=== PATIENT | male | born 1955 | race Caucasian/White ===

== ENCOUNTER → 2020-12-05 00:18 | Outpatient (CLI) | payer MEDICARE, SELFPAY ==
[2020-12-05 19:14] LABS: SARS-CoV-2 RNA PCR Negative
== END ==
PROVIDERS: PCP Internal Medicine; Visit Provider Internal Medicine Gastroenterology
DX: Z01.812 Encounter for preprocedural laboratory examination (principal); Z20.822 Contact with and (suspected) exposure to COVID-19
CPT/HCPCS: C9803; U0003; U0005

== ENCOUNTER 2020-12-08 00:07 | Day surgery (SDC) | payer MEDICARE, SELFPAY ==
[2020-11-24 13:42] VITALS: BMI 28.3
[2020-12-08 07:22] VITALS: BP 171/77; PULSE 71; RESP 16; TEMP 36.6; O2SAT 100; BMI 28.6
[2020-12-08] MEDS: LACTATED RINGERS 1,000 ML 150 ML IV CONT (07:29)
--- NOTE | 2020-12-08 07:46 | WPDANESEPPF ---
Anes - Initial Pre Proc Eval Procedure: Operation Date: 12/08/20 08:30 Proposed Procedures p Esophagogastroduodenoscopy & Colonoscopy - Koko Becker MD Date/Time: 12/08/20 07:46 Surgeon: Koko Becker MD Pre Op Diagnosis: Diarrhea, GERD, Dysphagia Patient Data Age: 65 Gender: M Height: 5 ft 9 in Weight: 87.9 kg Last Vital Signs Temp 98 F 12/08/20 07:22 Pulse 71 12/08/20 07:22 Resp 16 12/08/20 07:22 BP 171/77 H 12/08/20 07:22 Pulse Ox 100 12/08/20 07:22 Allergies Allergy/AdvReac Type Severity Reaction Status Date / Time No Known Allergies Allergy Verified 12/08/20 07:19 Home Medications Medication Instructions Recorded Confirmed Type amlodipine 5 mg tablet 5 mg PO DAILY 10/23/20 12/08/20 History diclofenac sodium 75 mg 75 mg PO BID 10/23/20 12/08/20 History tablet,delayed release fenofibrate 160 mg tablet 160 mg PO DAILY 10/23/20 12/08/20 History losartan 100 mg tablet 100 mg PO DAILY 10/23/20 12/08/20 History tamsulosin 0.4 mg capsule 0.4 mg PO DAILY 10/23/20 12/08/20 History trazodone 50 mg PO DAILY 11/24/20 12/08/20 History Patient hx anesthesia problems: none Family hx anesthesia problems: none PMFSH Past Medical History Medical History (Updated 10/26/20 @ 15:39 by Koko Becker MD) Arthritis Benign prostatic hyperplasia Diverticular disease Dysphagia Essential hypertension GERD (gastroesophageal reflux disease) Hernia of abdominal cavity Hyperlipidemia Insomnia Polyp of colon Surgical History Surgical History History of elbow surgery History of knee surgery History of throat surgery History of tonsillectomy Family History Family History Mother Heart disease Unknown Hypertension Malignant (primary) neoplasm, unspecified Family history of stroke Family history of cancer Social History Social History (Updated 10/26/20 @ 15:23 by Kalee Hyatt CMA) Years smoked: 5 Smoking status: Former smoker Tobacco type: cigarettes Alcohol intake: current Drinks per week: 3 Substance use: never Substance use type: does not use Living arrangements: with family Gender identity (if verbalized by the patient): Male Spiritual care concerns: No Anes - Eval Final PreProcedure Day of Procedure 12/08/20 07:46 Patient weight: normal Heart: regular rate and rhythm Lungs: clear to auscultation Airway: Mallampati scale class II Neurological: alert and oriented Last oral intake: >/= 8 hours ASA classification: III Emergent: no Anesthetic plan: proceed Anesthesia type and monitoring: general GIVS and standard monitoring Informed Consent: The patient's anesthetic plan and its attendant risks and benefits were discussed with the patient/family/POA. Questions were solicited and answers provided to the satisfaction of the patient/family/POA.
--- NOTE | 2020-12-08 08:34 | PM.HPGS ---
History of Present Illness History of Present Illness Consent: Risks, benefits, and alternatives have been discussed and questions answered. Patient agrees to proceed with procedure. Chief complaint: Diarrhea, GERD, Dysphagia Narrative: Toy Lopez is a 65 year old male with several months of loose stools mostly in the morning, also abdominal discomfort and urgency, GERD (never had EGD), last colonoscopy 2018 and had polyps in the past Review of Systems Constitutional: Constitutional: Denies headache(s) and Denies weakness Eyes: Eyes: Denies blurry vision ENT: Reports Normal hearing present, Denies headache(s) and Denies neck pain Cardiovascular: Cardiovascular: Denies chest pain and Denies dyspnea Respiratory: Respiratory: Denies dyspnea Gastrointestinal: Gastrointestinal: Reports no additional gastrointestinal complaints Genitourinary: Genitourinary: Denies dysuria Musculoskeletal: Musculoskeletal: Denies neck pain Integumentary/Breasts: Skin/Breast: Denies dry skin Neurologic: Reports Normal hearing present, Denies headache(s) and Denies weakness Psychiatric: Psychiatric: Denies anxiety Endocrine: Endocrine: Denies change in body appearance Hematologic/Lymphatic: Hematologic/Lymphatic: Denies easy bleeding Allergic/Immunologic: Allergic/Immunologic: Denies urticaria PMF Past Medical History Medical History (Updated 12/08/20 @ 08:35 by Koko Becker MD) Arthritis Benign prostatic hyperplasia Diarrhea Diverticular disease Dysphagia Essential hypertension GERD (gastroesophageal reflux disease) Hernia of abdominal cavity Hyperlipidemia Insomnia Polyp of colon Surgical History Surgical History History of elbow surgery History of knee surgery History of throat surgery History of tonsillectomy Family History Family History Mother Heart disease Unknown Hypertension Malignant (primary) neoplasm, unspecified Family history of stroke Family history of cancer Social History Social History (Updated 10/26/20 @ 15:23 by Kalee Hyatt CMA) Years smoked: 5 Smoking status: Former smoker Tobacco type: cigarettes Alcohol intake: current Drinks per week: 3 Substance use: never Substance use type: does not use Living arrangements: with family Gender identity (if verbalized by the patient): Male Spiritual care concerns: No Meds Home Medications and Allergies Home Medications Medication Instructions Recorded Confirmed Type amlodipine 5 mg tablet 5 mg PO DAILY 10/23/20 12/08/20 History diclofenac sodium 75 mg 75 mg PO BID 10/23/20 12/08/20 History tablet,delayed release fenofibrate 160 mg tablet 160 mg PO DAILY 10/23/20 12/08/20 History losartan 100 mg tablet 100 mg PO DAILY 10/23/20 12/08/20 History tamsulosin 0.4 mg capsule 0.4 mg PO DAILY 10/23/20 12/08/20 History trazodone 50 mg PO DAILY 11/24/20 12/08/20 History Allergies Allergy/AdvReac Type Severity Reaction Status Date / Time No Known Allergies Allergy Verified 12/08/20 07:19 Vital Signs Vital Signs - 24 hr 12/08/20 07:22 Temperature 98 F Pulse Rate 71 Respiratory Rate 16 Blood Pressure 171/77 H Pulse Oximetry 100 Exam Const: General: comfortable and no acute distress HENMT: General nose exam: Normal nares present Eyes: General: appearance normal, both eyes and all related structures Neck: Neck: no JVD Resp: Auscultation: clear to auscultation bilaterally Cardio: Rate: regular rate Rhythm: regular rhythm GI: Inspection: non-distended GI Palp: Yes Soft to palpation Skin: General skin exam: normal color Neuro: General: gait normal Speech: normal speech Extrem: General: normal to inspection Psych: Mental Status: mental status grossly normal Assessment and Plan Assessment and plan (1) GERD (gastroesophageal reflux
--- NOTE | 2020-12-08 08:50 | SUR.OPER ---
EGD ENDED 845, COLONOSCOPY STARTED 849
[2020-12-08 09:06] VITALS: BP 141/82; PULSE 66; RESP 16; O2SAT 100
[2020-12-08 09:16] VITALS: BP 137/78; PULSE 61; RESP 18; O2SAT 100
[2020-12-08 09:26] VITALS: BP 164/89; PULSE 60; RESP 18; O2SAT 100
== END 2020-12-08 09:55 | disposition home or self-care (01) ==
PROVIDERS: PCP Internal Medicine; Visit Provider Internal Medicine Gastroenterology
PROC: 0DJ08ZZ Inspection of Upper Intestinal Tract, Via Natural or Artificial Opening Endoscopic (ICD-10-PCS; CPT 43235; principal; 2020-12-08 08:30)
DX: R19.7 Diarrhea, unspecified (principal); K57.30 Diverticulosis of large intestine without perforation or abscess without bleeding; K64.8 Other hemorrhoids; K21.00 Gastro-esophageal reflux disease with esophagitis, without bleeding; K29.80 Duodenitis without bleeding; K22.10 Ulcer of esophagus without bleeding; K29.70 Gastritis, unspecified, without bleeding; I10 Essential (primary) hypertension; E78.5 Hyperlipidemia, unspecified; N40.0 Benign prostatic hyperplasia without lower urinary tract symptoms; Z87.891 Personal history of nicotine dependence
CPT/HCPCS: 45380; 43239; 87081; 88305; C9803; J2704; J7120; U0003; U0005

== ENCOUNTER 2021-05-14 02:57 | Day surgery (SDC) | payer MEDICARE, SELFPAY ==
[2021-05-07 09:41] VITALS: BMI 28.7
[2021-05-14 08:22] VITALS: BP 149/68; PULSE 58; RESP 16; TEMP 36.5; O2SAT 99; BMI 28.2
[2021-05-14] MEDS: LACTATED RINGERS 1,000 ML 150 ML IV CONT (08:35)
--- NOTE | 2021-05-14 08:36 | WPDANESEPPF ---
Anes - Initial Pre Proc Eval Procedure: Operation Date: 05/14/21 09:00 Proposed Procedures p Esophagogastroduodenoscopy - Koko Becker MD Date/Time: 05/14/21 08:36 Surgeon: Koko Becker MD Pre Op Diagnosis: esophagitis Patient Data Age: 65 Gender: M Height: 1.75 m Weight: 86.6 kg Last Vital Signs Temp 97.7 F 05/14/21 08:22 Pulse 58 L 05/14/21 08:22 Resp 16 05/14/21 08:22 BP 149/68 H 05/14/21 08:22 Pulse Ox 99 05/14/21 08:22 Allergies Allergy/AdvReac Type Severity Reaction Status Date / Time No Known Allergies Allergy Verified 05/14/21 08:21 Home Medications Medication Instructions Recorded Confirmed Type amlodipine 5 mg tablet 5 mg PO DAILY 10/23/20 05/07/21 History fenofibrate 160 mg tablet 160 mg PO DAILY 10/23/20 05/07/21 History losartan 100 mg tablet 100 mg PO DAILY 10/23/20 05/07/21 History tamsulosin 0.4 mg capsule 0.4 mg PO DAILY 10/23/20 05/07/21 History omeprazole 40 mg capsule,delayed 40 mg PO DAILY #30 cap 12/08/20 05/07/21 Rx release folic acid 1 mg PO DAILY 05/07/21 05/07/21 History hydroxychloroquine 200 mg PO BID 05/07/21 05/07/21 History methotrexate sodium 10 mg PO WEEKLY 05/07/21 05/07/21 History Patient hx anesthesia problems: none Family hx anesthesia problems: none PMFSH Past Medical History Medical History (Updated 04/01/21 @ 10:04 by Koko Becker MD) Arthritis Benign prostatic hyperplasia Diarrhea Diverticular disease Dry mouth Dysphagia Erosive esophagitis Essential hypertension GERD (gastroesophageal reflux disease) Hernia of abdominal cavity Hyperlipidemia Insomnia Irritable bowel syndrome with diarrhea Polyp of colon Rheumatoid arthritis Surgical History Surgical History History of elbow surgery History of knee surgery History of throat surgery History of tonsillectomy Family History Family History Mother Heart disease Unknown Hypertension Malignant (primary) neoplasm, unspecified Family history of stroke Family history of cancer Social History Social History Years smoked: 5 Smoking status: Never smoker Tobacco type: cigarettes Alcohol intake: current Drinks per week: 3 Substance use: never Substance use type: does not use Living arrangements: with family Gender identity (if verbalized by the patient): Male Spiritual care concerns: No Anes - Eval Final PreProcedure Day of Procedure 05/14/21 08:36 Patient weight: obese Heart: regular rate and rhythm Lungs: clear to auscultation Airway: Mallampati scale class II Neurological: alert and oriented Last oral intake: >/= 8 hours ASA classification: III Emergent: no Anesthetic plan: proceed Anesthesia type and monitoring: general GIVS and standard monitoring Informed Consent: The patient's anesthetic plan and its attendant risks and benefits were discussed with the patient/family/POA. Questions were solicited and answers provided to the satisfaction of the patient/family/POA.
--- NOTE | 2021-05-14 09:00 | PM.HPGS ---
History of Present Illness History of Present Illness Consent: Risks, benefits, and alternatives have been discussed and questions answered. Patient agrees to proceed with procedure. Chief complaint: esophagitis Narrative: Toy Lopez is a 65 year old male with erosive esophagitis 11/2020 better with omeprazole and not longer using nsaid's. Still with morning diarrhea on imodium, could not afford xifaxan (colonoscopy with normal bx) Review of Systems Constitutional: Constitutional: Denies headache(s) and Denies weakness Eyes: Eyes: Denies blurry vision ENT: Reports Normal hearing present, Denies headache(s) and Denies neck pain Cardiovascular: Cardiovascular: Denies chest pain and Denies dyspnea Respiratory: Respiratory: Denies dyspnea Gastrointestinal: Gastrointestinal: Reports no additional gastrointestinal complaints Genitourinary: Genitourinary: Denies dysuria Musculoskeletal: Musculoskeletal: Denies neck pain Integumentary/Breasts: Skin/Breast: Denies dry skin Neurologic: Reports Normal hearing present, Denies headache(s) and Denies weakness Psychiatric: Psychiatric: Denies anxiety Endocrine: Endocrine: Denies change in body appearance Hematologic/Lymphatic: Hematologic/Lymphatic: Denies easy bleeding Allergic/Immunologic: Allergic/Immunologic: Denies urticaria PMFSH Past Medical History Medical History (Updated 04/01/21 @ 10:04 by Koko Becker MD) Arthritis Benign prostatic hyperplasia Diarrhea Diverticular disease Dry mouth Dysphagia Erosive esophagitis Essential hypertension GERD (gastroesophageal reflux disease) Hernia of abdominal cavity Hyperlipidemia Insomnia Irritable bowel syndrome with diarrhea Polyp of colon Rheumatoid arthritis Surgical History Surgical History History of elbow surgery History of knee surgery History of throat surgery History of tonsillectomy Family History Family History Mother Heart disease Unknown Hypertension Malignant (primary) neoplasm, unspecified Family history of stroke Family history of cancer Social History Social History Years smoked: 5 Smoking status: Never smoker Tobacco type: cigarettes Alcohol intake: current Drinks per week: 3 Substance use: never Substance use type: does not use Living arrangements: with family Gender identity (if verbalized by the patient): Male Spiritual care concerns: No Meds Home Medications and Allergies Home Medications Medication Instructions Recorded Confirmed Type amlodipine 5 mg tablet 5 mg PO DAILY 10/23/20 05/07/21 History fenofibrate 160 mg tablet 160 mg PO DAILY 10/23/20 05/07/21 History losartan 100 mg tablet 100 mg PO DAILY 10/23/20 05/07/21 History tamsulosin 0.4 mg capsule 0.4 mg PO DAILY 10/23/20 05/07/21 History omeprazole 40 mg capsule,delayed 40 mg PO DAILY #30 cap 12/08/20 05/07/21 Rx release folic acid 1 mg PO DAILY 05/07/21 05/07/21 History hydroxychloroquine 200 mg PO BID 05/07/21 05/07/21 History methotrexate sodium 10 mg PO WEEKLY 05/07/21 05/07/21 History Allergies Allergy/AdvReac Type Severity Reaction Status Date / Time No Known Allergies Allergy Verified 05/14/21 08:21 Vital Signs Vital Signs - 24 hr 05/14/21 08:22 Temperature 97.7 F Pulse Rate 58 L Respiratory Rate 16 Blood Pressure 149/68 H Pulse Oximetry 99 Exam Const: General: comfortable and no acute distress HENMT: General nose exam: Normal nares present Eyes: General: appearance normal, both eyes and all related structures Neck: Neck: no JVD Resp: Auscultation: clear to auscultation bilaterally Cardio: Rate: regular rate Rhythm: regular rhythm GI: Inspection: non-distended GI Palp: Yes Soft to palpation Skin: General skin exam: normal color Neuro: General: gait norm
[2021-05-14 09:16] VITALS: BP 109/54; PULSE 56; RESP 17; O2SAT 100
[2021-05-14 09:26] VITALS: BP 105/53; PULSE 54; RESP 17; O2SAT 100
[2021-05-14 09:36] VITALS: BP 115/64; PULSE 54; RESP 14; O2SAT 100
== END 2021-05-14 09:47 | disposition home or self-care (01) ==
PROVIDERS: PCP Internal Medicine; Visit Provider Internal Medicine Gastroenterology
PROC: 0DJ08ZZ Inspection of Upper Intestinal Tract, Via Natural or Artificial Opening Endoscopic (ICD-10-PCS; CPT 43235; principal; 2021-05-14 09:00)
DX: K22.10 Ulcer of esophagus without bleeding (principal); K21.9 Gastro-esophageal reflux disease without esophagitis; R13.10 Dysphagia, unspecified; K57.30 Diverticulosis of large intestine without perforation or abscess without bleeding; K58.0 Irritable bowel syndrome with diarrhea; I10 Essential (primary) hypertension; E78.5 Hyperlipidemia, unspecified; M19.90 Unspecified osteoarthritis, unspecified site; M06.9 Rheumatoid arthritis, unspecified; N40.0 Benign prostatic hyperplasia without lower urinary tract symptoms; R68.2 Dry mouth, unspecified; G47.00 Insomnia, unspecified
CPT/HCPCS: 43235; J2001; J2704; J7120

== ENCOUNTER 2024-03-27 17:37 | Emergency (ER) | payer MEDICARE, SELFPAY ==
--- NOTE | ~2024-03-27 | CT_ITS ---
EXAMINATION: CT abdomen pelvis w con DATE: 03/27/2024 18:43 INDICATION: Left lower quadrant abdominal pain. TECHNIQUE: Computed tomography (CT) of the abdomen and pelvis was performed with 100 mL Omnipaque 350 intravenous contrast. Automated exposure control and iterative reconstruction technique were employe d. The dose-length product was 1014.53 mGy-cm. COMPARISON: CT abdomen and pelvis 08/29/2012 FINDINGS: The visualized portions of the lung bases demonstrate mild atelectasis. No pleural effusion . There is left atrial enlargement of the heart. No pericardial effusion. The liver and spleen are no rmal. There are changes of cholecystectomy. The pancreas, adrenal glands, are normal. There are cysts in the kidneys measuring up to 2.5 cm on the left. There is mild left hydronephrosis. There is a 4 m m stone in proximal left ureter. There is diverticulosis of the colon without evidence of diverticuli tis. There are no dilated loops of bowel. The appendix is normal. There are no pathologically enlarge d lymph nodes. There is no free intraperitoneal fluid. There is severe lower lumbar spondylosis. IMPRESSION: 1. 4 mm stone in proximal left ureter with mild left hydronephrosis. Reviewed, dictated and finalized at location E.
[2024-03-27 17:46] VITALS: BP 172/88; PULSE 61; RESP 18; TEMP 36.9; O2SAT 100
--- NOTE | 2024-03-27 18:03 | ED.ABDPAIN ---
HPI - Abdominal Pain General Chief Complaint: Abdominal Pain Stated Complaint: abd pain Time Seen by Provider: 03/27/24 17:53 Source: patient Mode of arrival: ambulatory Limitations: no limitations History of Present Illness HPI narrative: this is a 68-year-old male who presents to the ED for chief complaint of left lower quadrant abdominal pain x2 days. reports dealing with chronic abdominal pain throughout the lower abdomen, however it is abnormally localized to the left lower quadrant over the past couple of days. He reports history of hernia with multiple mesh placement and is concerned that this may have to do with this pain. Endorses diarrhea x1 week. Endorses nausea but no vomiting. Denies fevers, chills, chest pain, shortness of breath, cough, flank pain, urinary symptoms. Related Data Home Medications Medication Instructions Recorded Confirmed amlodipine 5 mg tablet 5 mg PO DAILY 10/23/20 10/24/23 fenofibrate 160 mg tablet 160 mg PO DAILY 10/23/20 10/24/23 losartan 100 mg tablet 100 mg PO DAILY 10/23/20 10/24/23 tamsulosin 0.4 mg capsule 0.4 mg PO DAILY 10/23/20 10/24/23 folic acid 1 mg tablet 1 mg PO DAILY 05/07/21 10/24/23 methotrexate sodium 2.5 mg tablet 10 mg PO WEEKLY 05/07/21 10/24/23 Allergies Allergy/AdvReac Type Severity Reaction Status Date / Time No Known Allergies Allergy Verified 10/24/23 09:00 Review of Systems Review of Systems: All systems as dictated in HPI [facility] Past Medical History Medical History Arthritis Benign prostatic hyperplasia Diarrhea Diverticular disease Dry mouth Dysphagia Erosive esophagitis Essential hypertension GERD (gastroesophageal reflux disease) Hernia of abdominal cavity Hyperlipidemia Insomnia Irritable bowel syndrome with diarrhea Polyp of colon Rheumatoid arthritis Surgical History Surgical History History of elbow surgery History of knee surgery History of throat surgery History of tonsillectomy Family History Family History Mother Heart disease Unknown Hypertension Malignant (primary) neoplasm, unspecified Family history of stroke Family history of cancer Social History Social History Years smoked: 5 Smoking status: Never smoker Tobacco type: cigarettes Alcohol intake: current Drinks per week: 3 Substance use: never Substance use type: does not use Living arrangements: with family Occupation/Education: retired Gender identity (if verbalized by the patient): Male Spiritual care concerns: No Exam Narrative: GENERAL: Well-appearing, well-nourished, and in no acute distress. HEAD: Normocephalic, atraumatic. EYES: PERRLA and EOMI. ENT: Nares clear, no rhinorrhea or epistaxis. Mucous membranes moist. Oropharynx without tonsillar hypertrophy exudate or other lesions. NECK: Supple. No adenopathy or masses. CHEST: No respiratory distress. Clear to auscultation. No wheezes rales or rhonchi HEART: Regular rate and rhythm. No murmur heard. Normal peripheral pulses. ABDOMEN: minimal abdominal tenderness. Mild left-sided /left flank tenderness. Soft, otherwise nontender, nondistended, normal active bowel sounds. Negative peritoneal signs MSK: Normal range of motion. No edema. SKIN: Warm, dry, no rash. NEURO: Alert and oriented x4. No focal deficits. PSYCH: Normal mood and affect. Course Vital Signs Vital signs: Vital Signs Temperature 98.5 F 03/27/24 17:46 Pulse Rate 61 03/27/24 17:46 Respiratory Rate 18 03/27/24 17:46 Blood Pressure 172/88 H 03/27/24 17:46 Pulse Oximetry 100 03/27/24 17:46 Oxygen Delivery Room Air 03/27/24 17:46 Temperature 98.5 F 03/27/24 17:46 Pulse Rate 72 03/27/24 20:03 Respiratory Rate 18 03/27/24 20:03 Bloo
[2024-03-27 18:06] LABS: Basophils Percent Auto 0.2 % (0.2-1.2); Eosinophils Absolute Auto 0.1 K/mm3 (0-0.3); Eosinophils Percent Auto 0.5 % (0-4.4); Hematocrit 43.8 % (42.0-52.0); Immature Granulocyte Absolute 0.04 K/mm3 (0.00-0.031); Immature Granulocyte Percent A 0.4 % (0-0.5); Lymphocytes Absolute Auto 0.88 K/mm3 (0.9-3.2); Lymphocytes Percent Auto 8.5 % (18.3-44.2); Mean Corpuscular HGB Conc 34.2 g/dl (32-36); Mean Corpuscular Hemoglobin 31.6 pg (26-34); Mean Corpuscular Volume 92.2 fl (80-100); Mean Platelet Volume 10.5 fl (7.4-10.4); Monocytes Absolute Auto 0.9 K/mm3 (0.1-0.6); Monocytes Percent Auto 8.8 % (2.6-8.5); Neutrophils Absolute Auto 8.5 K/mm3 (1.3-6.7); Neutrophils Percent Auto 81.6 % (45.5-73.1); Platelet Count Result 225 k/mm3 (150-375); Red Blood Count 4.75 M/mm3 (4.6-6.20); Red Cell Distribution Width 14.6 % (11.5-14.5); White Blood Count 10.4 K/mm3 (4.5-10.0)
[2024-03-27 18:17] LABS: Alanine Aminotransferase 27 U/L (6-50); Albumin Level 4.6 g/dL (3.5-5.1); Alkaline Phosphatase 63 U/L (38-126); Anion Gap 11 mmol/L (4-12); Aspartate Amino Transferase 30 U/L (17-59); Bilirubin,Total 0.5 mg/dL (0.2-1.3); Blood Urea Nitrogen 27 mg/dL (9-20); Calcium 9.3 mg/dL (8.4-10.2); Carbon Dioxide 23 mmol/L (22-30); Chloride 106 mmol/L (98-107); Estimated CRCL calculation 42 ml/min; Estimated Glomerular Filt Rate 46; Glucose 104 mg/dL (65-110); Lipase 231 U/L (23-300); Potassium 4.1 mmol/L (3.4-5.0); Sodium 140 mmol/L (137-145)
[2024-03-27] MEDS: SODIUM CHLORIDE 0.9% IV 1,000 ML 999 ML IV CONT (18:47)
[2024-03-27] MEDS: ONDANSETRON INJ 4 MG/2 ML VIAL IV PUSH (18:47)
[2024-03-27] MEDS: HYDROmorphone HCL INJ (*CRX) 1 MG/ML SYR 0.5 MG IV PUSH (18:49)
[2024-03-27 18:54] VITALS: PULSE 71; RESP 18; O2SAT 96
[2024-03-27 19:05] LABS: Appearance Urine Clear (Clear); Bacteria Urine None Seen /hpf; Bilirubin Urine Negative (Negative); Blood Urine 2+ (Negative); Color Urine Yellow (Yellow); Glucose Urine UA Negative (Negative); Ketones Urine Negative (Negative); Leukocyte Esterase Ur Negative LEU/UL (Negative); Nitrate Urine Negative (Negative); Non Pathogenic Casts 0-2; Protein Urine Trace mg/dL (Negative); RBC Urine 51-100 /hpf (0-2); Specific Grav Ur 1.024 (1.001-1.035); Squamous Epithelial Cell Urine None Seen /hpf (Few); Urobilinogen Urine 0.2 mg/dL (<2.0); WBC Urine 0-5 /hpf (0-3); pH Urine 5.5 (5.0-9.0)
[2024-03-27 19:09] LABS: Add Urine Microscopic? YES
[2024-03-27 20:03] VITALS: BP 152/83; PULSE 72; RESP 18; O2SAT 98
== END 2024-03-27 20:04 | disposition home or self-care (01) ==
PROVIDERS: Emergency Medicine; Emergency Provider Physician Assistant; PCP Internal Medicine
DX: N20.1 Calculus of ureter (principal); I10 Essential (primary) hypertension; E78.5 Hyperlipidemia, unspecified; M06.9 Rheumatoid arthritis, unspecified
CPT/HCPCS: 36415; 74177; 80053; 81001; 83690; 85025; 96361; 96374; 96375; 99284; J1170; J2405; J7030; Q9967

== ENCOUNTER 2024-05-07 13:56 | Outpatient (CLI) | payer MEDICARE, SELFPAY ==
--- NOTE | ~2024-05-07 | XR_ITS ---
XR abdomen/kub 1V Ordering provider: Oliver Alfred MD History: . L ureteral stone follow up pain for 1 month . Comparison: None. FINDINGS: BOWEL: Nonobstructive bowel gas pattern. ORGANOMEGALY: None. SIGNIFICANT PATHOLOGIC CALCIFICATIONS: Stone in the left kidney lower pole. OTHER: Degenerative the spine. Osteoarthritic changes of both hips. No free air is seen under the dieter phragm. IMPRESSION: NO ACUTE ABDOMINAL FINDINGS. Left kidney lower pole stone. Reviewed, dictated and finalized at location A.
--- NOTE | ~2024-05-07 | CT_ITS ---
EXAMINATION: CT abdomen pelvis wo con DATE: 05/07/2024 14:14 INDICATION: Left ureteral stone. TECHNIQUE: Computed tomography (CT) of the abdomen and pelvis was performed without intravenous contr ast. Automated exposure control and iterative reconstruction technique were employed. The dose-length product was 879.51 mGy-cm. COMPARISON: CT abdomen and pelvis 03/27/2024 FINDINGS: The visualized portions of the lung bases demonstrate minimal atelectasis. No pleural effus ion. The heart size is normal. No pericardial effusion. The liver and spleen are normal. There are ch anges cholecystectomy. The pancreas and adrenal glands are normal. There are cysts in the kidneys sari suring up to 17 mm on the left. There is a 4 mm stone in left kidney. There is diverticulosis of the colon without evidence of diverticulitis. There are no dilated loops of bowel. The appendix is normal . There is old fat necrosis near the sigmoid colon. There are changes of umbilical hernia repair. The re are no pathologically enlarged lymph nodes. There is no free intraperitoneal fluid. There is sever e lumbar spondylosis. IMPRESSION: 1. 4 mm nonobstructing left kidney stone. Reviewed, dictated and finalized at location A.
== END 2024-05-07 13:57 ==
LOC: MICIMG 13:56
PROVIDERS: PCP Internal Medicine; Visit Provider Urology
DX: N20.1 Calculus of ureter (principal)
CPT/HCPCS: 74018; 74176

== ENCOUNTER 2024-05-24 07:27 | Outpatient (CLI) | payer MEDICARE, SELFPAY ==
--- NOTE | 2024-05-24 07:42 | ECG_ITS ---
Test Date: 2024-05-24 08:09:55 Measurements Intervals [place] Rate: 53 P: -75 ID: [id number] QRS: 42 QRSD: 83 T: 79 QT: 461 QTc: 435 Interpretive Statements ECTOPIC ATRIAL BRADYCARDIA BORDERLINE T WAVE ABNORMALITY- HIGH LATERAL LEADS BASELINE ARTIFACT- I, II, III, AVR, AVL ABNORMAL ECG No previous ECG available for comparison Electronically Signed On 05-24-2024 08:28:17 CDT by Cj Cortés D.O.
[2024-05-24 08:42] LABS: INR 1.2; Partial Thromboplastin Time 31.5 Seconds (22.3-36.8); Prothrombin Time 15.1 Seconds (11.1-14.7)
== END 2024-05-24 07:28 | disposition home or self-care (01) ==
PROVIDERS: PCP Internal Medicine; Visit Provider Urology
DX: N20.1 Calculus of ureter (principal); I10 Essential (primary) hypertension; R94.31 Abnormal electrocardiogram [ECG] [EKG]
CPT/HCPCS: 36415; 85610; 85730; 87086; 93005

== ENCOUNTER 2024-05-31 02:02 | Day surgery (SDC) | payer MEDICARE, SELFPAY ==
[2024-05-22 13:51] VITALS: BMI 29.0
--- NOTE | 2024-05-22 14:08 | PC.NURSE ---
Report to the Outpatient Waiting Room, entrance under the green pavilion located off [facility], at time 06:00am__on date___05/31/24____. Planned Procedure Time: __07:30am .? Time changes happen often and if your time is changed the preop area will call you the afternoon before. - You and your visitor will be asked to self-screen and do not enter if you have any COVID symptoms. Please call surgeon if you need to reschedule. - A mask is optional within the hospital at this time. Patients may have clear liquids (water, carbonated beverages, clear teas, apple juice) until 3 hours prior to surgery with a maximum of 20 ounces. - No food from midnight until time of surgery and no smoking Take only the following medications with a SIP of water on the morning of surgery: __Amlodipine and Tylenol if needed DO NOT STOP ANY OF YOUR OTHER PRESCRIPTION MEDICATIONS PRIOR TO SURGERY EXCEPT THE FOLLOWING Medications to discontinue per physician Hold all NSAIDS for 7 days prior to Surgery per Dr Alfred. Date to take last dose__05/23/24 Pt is to hold all vitamins, supplements, herbs and probiotics for 3 days prior to surgery per Anesthesia. Date to take last dose 05/27/24. Please no make-up, nail maltese, hairspray, perfume, deodorant, or body powder the day of surgery.? No jewelry (including any body piercings) or valuables the day of surgery, leave them at home.? Please take a shower or bath the night before, or the morning of, surgery with an antibacterial soap.? Wear comfortable, loose fitting clothing.? Children are encouraged to wear pajamas. - Jewelry must be removed prior to entering the operating room.? Rings and piercings that are not removed may be cut off. - The hospital will not accept responsibility for valuables.? - Please leave all valuables, including medications, at home the day of surgery. If you are going home after surgery, a licensed pedicab driver must drive you home.? - NO public transportation without another adult if you receive anesthesia. - We recommend that an adult stay with you for 24 hours following discharge. - We also recommend that you do not drive, make important decision, drink alcoholic beverages, or take any drugs that were not prescribed by your health care provider for at least 24 hours after your discharge time. Follow any additional instructions given to you from your surgeon. Telephone instructions given to __patient and asked if any additional questions and then verbalized understanding. Patient advised to call surgeon office or pre surgery nurse liaison [phone] if any additional questions.
--- NOTE | 2024-05-30 14:04 | WPDANESEPPF ---
Anes - Initial Pre Proc Eval Procedure: Operation Date: 05/31/24 07:30 Proposed Procedures p Left Extracorporeal Shock Wave Lithotripsy - Oliver Alfred MD Date/Time: 05/30/24 14:04 Surgeon: Oliver Alfred MD Pre Op Diagnosis: left ureteral stone Patient Data Age: 69 Gender: M Height: 1.74 m Weight: 88 kg Allergies Allergy/AdvReac Type Severity Reaction Status Date / Time No Known Allergies Allergy Verified 05/22/24 13:39 Home Medications Medication Instructions Recorded Confirmed Type amlodipine 5 mg tablet 5 mg PO DAILY 10/23/20 05/22/24 History fenofibrate 160 mg tablet 160 mg PO DAILY 10/23/20 05/22/24 History losartan 100 mg tablet 100 mg PO DAILY 10/23/20 05/22/24 History tamsulosin 0.4 mg capsule 0.4 mg PO DAILY 10/23/20 05/22/24 History folic acid 1 mg tablet 1 mg PO DAILY 05/07/21 05/22/24 History methotrexate sodium 2.5 mg tablet 16 mg PO WEEKLY 05/07/21 05/22/24 History ascorbic acid (vitamin C) 1,000 mg 1,000 mg PO DAILY 05/22/24 05/22/24 History tablet (Vitamin C) ibuprofen 200 mg tablet 400 mg PO DAILY PRN Pain 05/22/24 05/22/24 History turmeric 400 mg capsule 400 mg PO BID 05/22/24 05/22/24 History vit C 250 mg-vit E 90 mg-zinc 40 1 cap PO BID 05/22/24 05/22/24 History mg-copper 1 fw-exhnax-mtyndh capsule (PreserVision AREDS-2) Patient hx anesthesia problems: post op nausea/vomiting Family hx anesthesia problems: none Results Review: All pre-operative results and documents have been reviewed as part of the pre-operative evaluation. [facility] Past Medical History Medical History Arthritis Benign prostatic hyperplasia Diarrhea Diverticular disease Dry mouth Dysphagia Erosive esophagitis Essential hypertension GERD (gastroesophageal reflux disease) Hernia of abdominal cavity Hyperlipidemia Insomnia Irritable bowel syndrome with diarrhea Polyp of colon Rheumatoid arthritis Surgical History Surgical History History of elbow surgery History of knee surgery History of throat surgery History of tonsillectomy Family History Family History Mother Heart disease Unknown Hypertension Malignant (primary) neoplasm, unspecified Family history of stroke Family history of cancer Social History Social History Years smoked: 5 Smoking status: Former smoker Tobacco type: cigarettes Smoking end date: 09/18/94 Alcohol intake: current Drinks per week: 1 Substance use: never Substance use type: does not use Living arrangements: with family Additional living arrangements comments: Occupation/Education: retired Gender identity (if verbalized by the patient): Male Spiritual care concerns: Yes Anes - Eval Final PreProcedure Day of Procedure 05/30/24 14:04 Patient weight: overweight Heart: regular rate and rhythm Lungs: clear to auscultation Airway: Mallampati scale class II Neurological: alert and oriented Last oral intake: >/= 8 hours ASA classification: II Emergent: no Anesthetic plan: proceed Anesthesia type and monitoring: general LMA and standard monitoring Results Review: All pre-operative results and documents have been reviewed as part of the pre-operative evaluation. Informed Consent: The patient's anesthetic plan and its attendant risks and benefits were discussed with the patient/family/POA. Questions were solicited and answers provided to the satisfaction of the patient/family/POA.
[2024-05-31] VITALS (7 sets, daily range): BP systolic 125–156; BP diastolic 64–77; PULSE 54–66; RESP 10–20; TEMP 36.3–36.6; O2SAT 99–100
--- NOTE | ~2024-05-31 | XR_ITS ---
Supine and upright views of the abdomen Clinical history: Lithotripsy COMPARISON: 05/07/2024 Findings: Bowel gas pattern is nonspecific. No evidence for obstruction or free air. Small left lower pole renal stone is essentially unchanged.. Osseous structures are intact. Impression: Stable small left lower pole renal stone. Reviewed, dictated and finalized at [facility]. Impression: Stable small left lower pole renal stone.
[2024-05-31] MEDS: LACTATED RINGERS 1,000 ML 30 ML IV CONT ×2 (06:45→08:06)
[2024-05-31] MEDS: SCOPOLAMINE 1 MG PATCH 1 PATCH TRANSDERM (07:00)
--- NOTE | 2024-05-31 07:16 | WPDHPUPDATE1 ---
History and Physical Update Update Date/Time: 05/31/24 07:16 History and Physical has been reviewed, including an updated exam of the patient. There are NO changes in the patient's condition. Risks, benefits, and alternatives have been discussed and questions answered. Patient agrees to proceed with procedure. Proceed with left renal eswl
[2024-05-31 07:23] LABS: INR 1.1; Prothrombin Time 14.3 Seconds (11.1-14.7)
[2024-05-31] MEDS: ceFAZolin 2 GM/D5W 50 ML 2 GM/50 ML BAG IVPB (07:26)
--- NOTE | 2024-05-31 08:24 | P.OP_ITS ---
Procedure Note - Detailed Date of Procedure 05/31/24 Pre-op Diagnosis left renal stone 4-5 mm Post-op Diagnosis Same Procedure Performed Lithotripsy of left renal calculus Surgeon Oliver Alfred MD Anesthesia General Description of Procedure Patient was taken the operative suite correctly identified. Once anesthesia was obtained he was placed in the supine position with the stone localized in both planes. Two thousand five hundred shocks were given to this stone. There appeared be good fragmentation. Patient tolerated procedure well without any complications and was taken recovery stable condition. He will follow-up in 7- 10 days with [facility]. Estimated Blood Loss 0 Drains No Packing No Pathology None sent Complications No immediate complications Condition Stable Disposition PACU
[2024-05-31] MEDS: oxyCODONE HCL (*CRX) 5 MG TAB IR PO (08:49)
== END 2024-05-31 09:47 | disposition home or self-care (01) ==
PROVIDERS: PCP Internal Medicine; Visit Provider Urology
PROC: (CPT 50590; principal; 2024-05-31 07:30)
DX: N20.0 Calculus of kidney (principal); I10 Essential (primary) hypertension; E78.5 Hyperlipidemia, unspecified; N40.0 Benign prostatic hyperplasia without lower urinary tract symptoms; K58.0 Irritable bowel syndrome with diarrhea; M06.9 Rheumatoid arthritis, unspecified; Z87.891 Personal history of nicotine dependence
CPT/HCPCS: 50590; 36415; 74018; 85610; A9270; J0690; J1100; J2405; J2704; J3010; J7120

== ENCOUNTER 2024-06-24 13:18 | Outpatient (CLI) | payer MEDICARE, SELFPAY ==
--- NOTE | ~2024-06-24 | XR_ITS ---
XR abdomen/kub 1V Ordering provider: Oliver Alfred MD History: . CALCIUM KIDNEY STONE . Comparison: May 31, 2024 FINDINGS: BOWEL: Nonobstructive bowel gas pattern. ORGANOMEGALY: None. SIGNIFICANT PATHOLOGIC CALCIFICATIONS: None. OTHER: No free air is seen under the diaphragm. IMPRESSION: NO ACUTE ABDOMINAL FINDINGS. Reviewed, dictated and finalized at location A.
== END 2024-06-24 13:19 | disposition home or self-care (01) ==
LOC: MICIMG 13:19
PROVIDERS: PCP Internal Medicine; Visit Provider Urology
DX: N20.0 Calculus of kidney (principal)
CPT/HCPCS: 74018

== ENCOUNTER 2024-09-05 07:47 | Outpatient (CLI) | payer MEDICARE, SELFPAY ==
--- NOTE | ~2024-09-05 | CT_ITS ---
EXAMINATION: CT diagnostic chest wo con DATE: 09/05/2024 08:16 INDICATION: AAA TECHNIQUE: Computed tomography (CT) of the chest was performed without intravenous contrast. Addition al 3D reconstructions utilizing coronal maximum intensity projection (MIP) were performed. Automated exposure control and iterative reconstruction technique were employed. The dose-length product was 33 5.21 mGy-cm. COMPARISON: None FINDINGS: Discoid atelectasis along the left lung base. No pneumonia, pulmonary edema, pleural effusion or pneu mothorax. Small calcified nodule at the superior segment of the left lower lobe consistent with old g ranulomatous disease. Heart size is normal. No pericardial effusion. Mildly aneurysmal ascending thor acic aorta measuring 4.3 x 4.2 cm. No pathologically enlarged thoracic lymphadenopathy. Cholecystecto my clips the gallbladder fossa. There are few diverticula along the proximal descending colon without adjacent from trace stranding to suggest diverticulitis. There are bridging osteophytes at multiple levels in the thoracic spine consistent with diffuse idiopathic skeletal hyperostosis (DISH). IMPRESSION: 1. Mildly aneurysmal ascending thoracic aorta measuring up to 4.3 cm in maximal diameter. Reviewed, dictated and finalized at location A. NT CARE PHYSICIAN ASSISTANT
== END 2024-09-05 07:48 | disposition home or self-care (01) ==
PROVIDERS: PCP Internal Medicine; Visit Provider Internal Medicine
DX: I71.20 Thoracic aortic aneurysm, without rupture, unspecified (principal)
CPT/HCPCS: 71250

== ENCOUNTER 2025-07-01 07:19 | Outpatient (CLI) | payer MEDICARE, SELFPAY ==
--- NOTE | ~2025-07-01 | XR_ITS ---
XR lumbar spine 2-3V Indication: Lumbar back pain Comparison: None Findings: Grade 1 anterolisthesis L4 on L5, no fracture. Moderate to severe loss of disc height at L4-5 and L5-S1 Soft tissues unremarkable Impression: No acute abnormality. Reviewed, dictated and finalized at location P. Impression: No acute abnormality.
== END 2025-07-01 07:20 | disposition home or self-care (01) ==
PROVIDERS: PCP Internal Medicine; Visit Provider Internal Medicine
DX: M54.50 Low back pain, unspecified (principal)
CPT/HCPCS: 72100

== ENCOUNTER 2025-07-07 08:45 | Outpatient (CLI) | payer MEDICARE, SELFPAY ==
--- NOTE | ~2025-07-07 | DEXA_ITS ---
Bone Density Report Name: SHAYY QUEEN Age: 70 Sex: Male Ethnicity: White Date of : 1955 Indication: screening for osteoporosis; rheumatoid arthritis; Referring Provider: DIANDRA, AUGUSTO [place] Study: Bone densitometry was performed. Exam Date: July 07, 2025 Accession number: [id number] Bone Density: Region BMD T-score Z-score Classification AP Spine(L1, L2) 1.246 1.8 2.7 Normal Femoral Neck (Left) 0.726 -1.5 -0.3 Osteopenia Total Hip (Left) 0.868 -1.1 -0.4 Osteopenia Femoral Neck (Right) 0.765 -1.2 0.0 Osteopenia Total Hip (Right) 0.839 -1.3 -0.6 Osteopenia Total Hip Mean 0.853 -1.2 -0.5 Osteopenia World Health Organization criteria for BMD impression classify patients as: Normal (T-score at or above -1.0), Osteopenia (T-score between -1.0 and -2.5), or Osteoporosis (T-score at or below -2.5). 10-year Fracture Risk(1): Major Osteoporotic Fracture 10% Hip Fracture 2.9% Reported Risk Factors: [place] (), Neck BMD=0.726, BMI=28.4, rheumatoid arthritis, alcohol use (1) FRAX(R) Version 3.08. Fracture probability calculated for an untreated patient. Fracture probability may be lower if the patient has received treatment. Clinical Information Provided by Patient: Has rheumatoid arthritis Has 3 or more alcoholic drinks per day Has used the following medications: Vitamin D Patient maximum height was 69 No regular weight bearing exercise Impression: The patient has low bone mass, based on the Left Femoral Neck T-score. The patient has an estimated ten-year risk of hip fracture of 2.9% and an estimated ten-year risk of major fracture of 10%, based on the WHO FRAX algorithm. The patient has risk factors, including: excessive alcohol use. Discussion: BONE DENSITY IS LOW AT ONE OR MORE SKELETAL SITES. This patient's lowest T-score is low at one or more skeletal sites. It meets the World Health Organization's (WHO) criteria for ?low bone mass? (T-score between -1.0 and -2.5). The patient's 10-year risk of fracture as calculated by FRAX is less than the threshold where pharmacological therapy is recommended by the National Osteoporosis Foundation (NOF). However, all treatment decisions require clinical judgment and consideration of individual patient factors, including patient preferences, comorbidities, previous drug use, risk factors not captured in the FRAX model (e.g., frailty, falls, vitamin D deficiency, increased bone turnover, interval significant decline in bone density) and possible under or overestimation of fracture risk by FRAX. The patient should follow a healthful lifestyle (good nutrition with adequate calcium and vitamin D, and appropriate weight-bearing exercise). Follow-Up: Consider repeating this study in 2 to 3 years to reassess this patient's status, or sooner if there is some new clinical indication. Reported by: BLANQUITA on 07/07/2025 9:20:00 AM. Reviewed, dictated and finalized at location A.
== END 2025-07-07 08:46 | disposition home or self-care (01) ==
LOC: MICIMG 08:48
PROVIDERS: PCP Internal Medicine Rheumatology; Visit Provider Internal Medicine
DX: M51.9 Unspecified thoracic, thoracolumbar and lumbosacral intervertebral disc disorder (principal); M85.852 Other specified disorders of bone density and structure, left thigh; M85.851 Other specified disorders of bone density and structure, right thigh
CPT/HCPCS: 77080